=== PATIENT | male | born 1950 | race Caucasian/White ===

== ENCOUNTER → 2020-09-07 | Outpatient (CLI) | payer BC ==
--- NOTE | 2020-09-08 08:26 | XR ---
Chest x-ray with left RIBS HISTORY: Trauma and pain Frontal view of the chest, 4 views of the left ribs, correlation to prior chest x-ray 07/17/2013 There is no evident pneumothorax or pleural effusion. No evident displaced rib fracture. Paramediasti nal silhouette is within normal limits. No airspace disease. IMPRESSION: No acute abnormalities evident. Consider bone scan to assess for occult fracture as indic ated.
== END | disposition home or self-care (01) ==
LOC: RADXRMAIN 15:49
PROVIDERS: ATTEND Thoracic Surgery (Cardiothoracic Vascular Surgery)
DX: R07.81 Pleurodynia (principal)

== ENCOUNTER → 2020-10-14 | Outpatient (CLI) | payer BC | END | disposition home or self-care (01) | LOC: LABWHC1 12:00 | PROVIDERS: ATTEND Thoracic Surgery (Cardiothoracic Vascular Surgery) | DX: Z11.52 Encounter for screening for COVID-19 (principal); Z20.822 Contact with and (suspected) exposure to COVID-19 | CPT/HCPCS: 87635; C9803 ==